=== PATIENT | female | born 2000 | race American Indian/Alaskan Native ===

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

== ENCOUNTER 2022-12-03 13:36 | Emergency (ER) | payer MEDICAID ==
[2022-12-03 14:02] LABS: BASOPHILS PERCENT AUTO 0.3 % (0.0-1.0); EOSINOPHILS PERCENT AUTO 1.7 % (1.0-3.0); HEMATOCRIT 31.6 % (37.0-47.0); HEMOGLOBIN 8.8 g/dL (12.0-16.0); LYMPHOCYTES PERCENT AUTO 41.3 % (20.5-50.1); MEAN CORPUSCULAR HEMOGLOBIN 17.4 pg (27.0-34.0); MEAN CORPUSCULAR HGB CONC 27.8 g/dL (33.0-35.0); MEAN CORPUSCULAR VOLUME 62.3 fL (80-100); MONOCYTES PERCENT AUTO 6.5 % (2-8); NEUTROPHILS PERCENT AUTO 50.2 % (42.2-75.2); PLATELET COUNT,PLT 476 10^3/uL (150-450); RED BLOOD CELL COUNT 5.07 10^6/uL (4.2-5.4); WHITE BLOOD CELL COUNT,WBC 7.3 10^3/uL (5.0-10.0)
[2022-12-03 14:13] LABS: A/G RATIO 0.9; ALANINE AMINOTRANSFERASE,ALT 32 U/L (14-59); ALBUMIN 3.6 g/dL (3.4-5.0); ALKALINE PHOSPHATASE 63 U/L (46-116); AMYLASE 47 U/L (25-115); ASPARTATE AMNIOTRANSFERASE,AST 11 U/L (15-37); BILIRUBIN TOTAL 0.6 mg/dL (0.2-1.0); BLOOD UREA NITROGEN,BUN 5 mg/dL (7-18); CALCIUM 8.4 mg/dL (8.5-10.1); CARBON DIOXIDE,CO2 25 mmol/L (21-32); CHLORIDE,CL 106 mmol/L (98-107); CREATININE 0.71 mg/dL (0.55-1.02); EST CRCL DRUG DOSING (CG) 93.79 mL/min; GLUCOSE RANDOM 92 mg/dL (70-99); LIPASE 96 U/L (73-393); PROTEIN TOTAL,TP 7.8 g/dL (6.4-8.2); SODIUM,NA 141 mmol/L (136-145)
[2022-12-03] MEDS ORDERED: Sodium Chloride 0.9% 1,000 ML IV ONE (14:13)
[2022-12-03 14:16] LABS: C-REACTIVE PROTEIN < 0.2 mg/dL (0.0-0.9); ESTIMATED GFR 123 mL/min (>=60); ETHANOL BLOOD MEDICAL < 3 mg/dL (0)
[2022-12-03 14:42] LABS: PERCENT FE SATURATION 4.9 % (20.0-50.0)
[2022-12-03 14:51] LABS: APPEARANCE,URINE SLIGHTLY CLOUDY (CLEAR); BILIRUBIN,URINE NEGATIVE (NEGATIVE); COLOR,URINE YELLOW (YELLOW); GLUCOSE,URINE NEGATIVE (NEGATIVE); KETONES,URINE NEGATIVE (NEGATIVE); LEUKOCYTE ESTERASE,URINE SMALL (NEGATIVE); NITRITE,URINE NEGATIVE (NEGATIVE); OCCULT BLOOD,URINE MODERATE (NEGATIVE); PH,URINE 6.5 (5.0-9.0); PROTEIN,URINE TRACE (NEGATIVE); UROBILINOGEN,URINE 0.2 mg/dL (0.2-1.0)
[2022-12-03 14:54] LABS: AMPHETAMINES,URINE NEGATIVE (NEGATIVE); BARBITURATES,URINE NEGATIVE (NEGATIVE); BENZODIAZEPINE,URINE NEGATIVE (NEGATIVE); MDMA (ECSTASY), URINE NEGATIVE (NEGATIVE); METHADONE,URINE NEGATIVE (NEGATIVE); METHAMPHETAMINES,URINE NEGATIVE (NEGATIVE); OPIATES,URINE NEGATIVE (NEGATIVE); OXYCODONE,URINE NEGATIVE (NEGATIVE); PHENCYCLIDINE,URINE NEGATIVE (NEGATIVE); TCA,URINE NEGATIVE (NEGATIVE)
[2022-12-03] MEDS ORDERED: cefTRIAXone 1 GM Vial IVPUSH ONE (14:56)
[2022-12-03 15:01] LABS: BACTERIA,URINE FEW /HPF (0-FEW/HPF); EPITHELIAL CELLS,URINE FEW /HPF (NOT SEEN); MUCUS,URINE FEW /LPF (NOT SEEN); RBC,URINE 0-5 /HPF (0-5)
[2022-12-03 15:41] VITALS: BP 124/84; PULSE 85
== END 2022-12-03 15:34 | disposition home or self-care (01) ==
LOC: DL.ED 13:36
DX: D50.9 Iron deficiency anemia, unspecified (principal); N30.00 Acute cystitis without hematuria; F17.200 Nicotine dependence, unspecified, uncomplicated
CPT/HCPCS: 36415; 80053; 80305; 80307; 81001; 81025; 82150; 82272; 83540; 83550; 83605; 83690; 83735; 85025; 86140; 96361; 96374; 99284; J0696; J7030

== ENCOUNTER 2023-02-06 06:29 | Emergency (ER) | payer MEDICAID ==
[2023-02-06] MEDS ORDERED: Sodium Chloride 0.9% 10 ML Syringe FLUSH PRN (07:06)
[2023-02-06 07:09] VITALS: BP 130/85; PULSE 140
[2023-02-06] MEDS ORDERED: Thiamine 100 MG in Sodium Chloride 0.9% 100 ML IV ONE (07:13)
[2023-02-06] MEDS ORDERED: Sodium Chloride 0.9% 1,000 ML IV ONE ×2 (07:13→07:44)
[2023-02-06 07:22] LABS: BASOPHILS PERCENT AUTO 0.4 % (0.0-1.0); EOSINOPHILS PERCENT AUTO 1.1 % (1.0-3.0); HEMATOCRIT 32.2 % (37.0-47.0); HEMOGLOBIN 9.5 g/dL (12.0-16.0); LYMPHOCYTES PERCENT AUTO 26.3 % (20.5-50.1); MEAN CORPUSCULAR HEMOGLOBIN 19.8 pg (27.0-34.0); MEAN CORPUSCULAR HGB CONC 29.5 g/dL (33.0-35.0); MEAN CORPUSCULAR VOLUME 67.2 fL (80-100); MONOCYTES PERCENT AUTO 7.5 % (2-8); NEUTROPHILS PERCENT AUTO 64.7 % (42.2-75.2); PLATELET COUNT,PLT 392 10^3/uL (150-450); RED BLOOD CELL COUNT 4.79 10^6/uL (4.2-5.4); WHITE BLOOD CELL COUNT,WBC 8.6 10^3/uL (5.0-10.0)
[2023-02-06 07:45] LABS: LACTIC ACID 4.5 mmol/L (0.4-2.0)
[2023-02-06 07:49] LABS: A/G RATIO 0.8; ALBUMIN 3.4 g/dL (3.4-5.0); ANION GAP 20.1 mEq/L (7-13); BILIRUBIN TOTAL 0.3 mg/dL (0.2-1.0); BUN/CREATININE RATIO 8.6 (No establ ref range); CALCIUM 8.5 mg/dL (8.5-10.1); CREATININE 0.7 mg/dL (0.55-1.02); EST CRCL DRUG DOSING (CG) 95.13 mL/min; MAGNESIUM 1.9 mg/dL (1.8-2.4); POTASSIUM,K 3.1 mmol/L (3.5-5.1); PROTEIN TOTAL,TP 7.7 g/dL (6.4-8.2); TSH ULTRASENSITIVE 1.5 uIU/mL (0.36-3.74)
[2023-02-06 07:51] LABS: PROTHROMBIN TIME 10.2 SEC (9.0-12.0); PTT,PARTIAL THROMBOPLSTIN TIME 20.7 SEC (22.0-34.0)
== END 2023-02-06 10:17 | disposition home or self-care (01) ==
LOC: DL.ED 06:29
DX: F10.929 Alcohol use, unspecified with intoxication, unspecified (principal); R45.851 Suicidal ideations; F17.210 Nicotine dependence, cigarettes, uncomplicated
CPT/HCPCS: 36415; 80053; 80143; 80179; 80307; 83540; 83605; 83735; 84443; 85025; 85610; 85730; 93005; 93010; 96365; 99284; 99285-25; J3411; J3490; J7030

== ENCOUNTER 2023-03-23 22:23 | Emergency (ER) | payer MEDICAID ==
[2023-03-23] MEDS ORDERED: Sodium Chloride 0.9% 1,000 ML IV ONE ×2 (22:55→23:23)
[2023-03-23] MEDS: Ondansetron 4 MG/2 ML SDV ONE (22:59)
[2023-03-23] MEDS ORDERED: Ondansetron 4 MG/2 ML SDV IVPUSH ONE (23:01)
[2023-03-23 23:09] LABS: HEMATOCRIT 37.1 % (37.0-47.0); HEMOGLOBIN 11.1 g/dL (12.0-16.0); MEAN CORPUSCULAR HEMOGLOBIN 20.2 pg (27.0-34.0); MEAN CORPUSCULAR HGB CONC 29.9 g/dL (33.0-35.0); MEAN CORPUSCULAR VOLUME 67.6 fL (80-100); PLATELET COUNT,PLT 489 10^3/uL (150-450); RED BLOOD CELL COUNT 5.49 10^6/uL (4.2-5.4); WHITE BLOOD CELL COUNT,WBC 11.9 10^3/uL (5.0-10.0)
[2023-03-23 23:15] VITALS: BP 136/101; PULSE 103
[2023-03-23 23:18] LABS: BASOPHILS PERCENT AUTO 0.4 % (0.0-1.0); EOSINOPHILS PERCENT AUTO 0.9 % (1.0-3.0); LYMPHOCYTES PERCENT AUTO 40.1 % (20.5-50.1); MONOCYTES PERCENT AUTO 6.1 % (2-8); NEUTROPHILS PERCENT AUTO 52.5 % (42.2-75.2)
[2023-03-23 23:20] LABS: LACTIC ACID 3.9 mmol/L (0.4-2.0)
[2023-03-23 23:23] LABS: A/G RATIO 0.8; ALANINE AMINOTRANSFERASE,ALT 25 U/L (14-59); ALBUMIN 3.9 g/dL (3.4-5.0); ALKALINE PHOSPHATASE 82 U/L (46-116); ANION GAP 17.8 mEq/L (7-13); ASPARTATE AMNIOTRANSFERASE,AST 14 U/L (15-37); BILIRUBIN TOTAL 0.2 mg/dL (0.2-1.0); BLOOD UREA NITROGEN,BUN 6 mg/dL (7-18); BUN/CREATININE RATIO 8.1 (No establ ref range); CALCIUM 8.7 mg/dL (8.5-10.1); CARBON DIOXIDE,CO2 21 mmol/L (21-32); CHLORIDE,CL 103 mmol/L (98-107); CREATININE 0.74 mg/dL (0.55-1.02); EST CRCL DRUG DOSING (CG) 97.81 mL/min; ETHANOL BLOOD MEDICAL 98 mg/dL (0); GLUCOSE RANDOM 109 mg/dL (70-99); LIPASE 43 U/L (16-77); POTASSIUM,K 2.8 mmol/L (3.5-5.1); SODIUM,NA 139 mmol/L (136-145)
[2023-03-23 23:29] LABS: ACETAMINOPHEN 0 ug/mL (10-30 (Therapeutic)); ESTIMATED GFR 117 mL/min (>=60)
[2023-03-23 23:38] LABS: HCG QUALITATIVE,SERUM NEGATIVE (NEGATIVE)
[2023-03-23 23:43] LABS: PERCENT FE SATURATION 94.9 % (20.0-50.0)
[2023-03-23 23:52] LABS: PROTHROMBIN TIME 9.8 SEC (9.0-12.0); PTT,PARTIAL THROMBOPLSTIN TIME 22.2 SEC (22.0-34.0)
[2023-03-24 00:04] LABS: BAND PERCENT MAN 4 %; LYMPHOCYTES PERCENT MAN 44 % (20-50); MONOCYTES PERCENT MAN 2 % (2-8); SEG NEUTROPHILS PERCENT MAN 50 % (42-75)
[2023-03-24] MEDS ORDERED: Potassium Chloride 20 MEQ in Premix Bag 1 BAG IV ONE (00:06)
[2023-03-24] MEDS: Ondansetron 4 MG/2 ML SDV ONE (00:13)
[2023-03-24] MEDS ORDERED: Sodium Chloride 0.9% 1,000 ML IV ONE (00:19)
[2023-03-24 00:30] LABS: AMPHETAMINES,URINE NEGATIVE (NEGATIVE); BARBITURATES,URINE NEGATIVE (NEGATIVE); BENZODIAZEPINE,URINE NEGATIVE (NEGATIVE); MDMA (ECSTASY), URINE NEGATIVE (NEGATIVE); METHADONE,URINE NEGATIVE (NEGATIVE); METHAMPHETAMINES,URINE NEGATIVE (NEGATIVE); OPIATES,URINE NEGATIVE (NEGATIVE); OXYCODONE,URINE NEGATIVE (NEGATIVE); PHENCYCLIDINE,URINE NEGATIVE (NEGATIVE); TCA,URINE NEGATIVE (NEGATIVE)
[2023-03-24 00:37] LABS: APPEARANCE,URINE CLEAR (CLEAR); BILIRUBIN,URINE NEGATIVE (NEGATIVE); COLOR,URINE YELLOW (YELLOW); GLUCOSE,URINE NEGATIVE (NEGATIVE); KETONES,URINE NEGATIVE (NEGATIVE); LEUKOCYTE ESTERASE,URINE NEGATIVE (NEGATIVE); NITRITE,URINE NEGATIVE (NEGATIVE); OCCULT BLOOD,URINE NEGATIVE (NEGATIVE); PROTEIN,URINE NEGATIVE (NEGATIVE); UROBILINOGEN,URINE 0.2 mg/dL (0.2-1.0)
[2023-03-24 01:29] LABS: PERCENT FE SATURATION 94.3 % (20.0-50.0)
== END 2023-03-24 01:47 ==
LOC: DL.ED 22:23
DX: T45.4X4A Poisoning by iron and its compounds, undetermined, initial encounter (principal); F10.120 Alcohol abuse with intoxication, uncomplicated; E87.6 Hypokalemia
CPT/HCPCS: 36415; 74018; 80053; 80143; 80179; 80305-QW; 80307; 81003; 82140; 83540; 83550; 83605; 83690; 83735; 84703; 85025; 85610; 85730; 86850; 86900; 86901; 93005; 93010; 96361; 96365; 96366; 96375; 99285; 99285-25; J2405; J3480; J7030

== ENCOUNTER 2023-04-27 04:47 | Emergency (ER) | payer MEDICAID ==
[2023-04-27] MEDS ORDERED: Sodium Chloride 0.9% 10 ML Syringe FLUSH PRN (04:51)
[2023-04-27] MEDS ORDERED: Sodium Chloride 0.9% 1,000 ML IV ONE (04:51)
[2023-04-27] MEDS ORDERED: Naloxone 2 MG/2 ML Syringe IVPUSH PRN ×2 (04:56→05:47)
[2023-04-27 05:07] LABS: BASOPHILS PERCENT AUTO 0.4 % (0.0-1.0); EOSINOPHILS PERCENT AUTO 1.7 % (1.0-3.0); HEMATOCRIT 34.1 % (37.0-47.0); LYMPHOCYTES PERCENT AUTO 45.9 % (20.5-50.1); MEAN CORPUSCULAR HEMOGLOBIN 20.2 pg (27.0-34.0); MEAN CORPUSCULAR HGB CONC 29.3 g/dL (33.0-35.0); MEAN CORPUSCULAR VOLUME 68.8 fL (80-100); MONOCYTES PERCENT AUTO 5.1 % (2-8); NEUTROPHILS PERCENT AUTO 46.9 % (42.2-75.2); PLATELET COUNT,PLT 365 10^3/uL (150-450); RED BLOOD CELL COUNT 4.96 10^6/uL (4.2-5.4); WHITE BLOOD CELL COUNT,WBC 7.2 10^3/uL (5.0-10.0)
[2023-04-27 05:22] LABS: A/G RATIO 0.8; ALANINE AMINOTRANSFERASE,ALT 29 U/L (14-59); ALBUMIN 3.4 g/dL (3.4-5.0); ALKALINE PHOSPHATASE 81 U/L (46-116); ANION GAP 13.3 mEq/L (7-13); ASPARTATE AMNIOTRANSFERASE,AST 22 U/L (15-37); BILIRUBIN TOTAL 0.3 mg/dL (0.2-1.0); BLOOD UREA NITROGEN,BUN 6 mg/dL (7-18); BUN/CREATININE RATIO 9.5 (No establ ref range); CALCIUM 7.9 mg/dL (8.5-10.1); CARBON DIOXIDE,CO2 25 mmol/L (21-32); CHLORIDE,CL 106 mmol/L (98-107); CREATININE 0.63 mg/dL (0.55-1.02); ETHANOL BLOOD MEDICAL 164 mg/dL (0); GLUCOSE RANDOM 120 mg/dL (70-99); POTASSIUM,K 3.3 mmol/L (3.5-5.1); PROTEIN TOTAL,TP 7.9 g/dL (6.4-8.2); SODIUM,NA 141 mmol/L (136-145)
[2023-04-27 05:30] LABS: ESTIMATED GFR 128 mL/min (>=60)
[2023-04-27 07:57] LABS: APPEARANCE,URINE CLEAR (CLEAR); BILIRUBIN,URINE NEGATIVE (NEGATIVE); COLOR,URINE YELLOW (YELLOW); GLUCOSE,URINE NEGATIVE (NEGATIVE); KETONES,URINE NEGATIVE (NEGATIVE); LEUKOCYTE ESTERASE,URINE NEGATIVE (NEGATIVE); NITRITE,URINE NEGATIVE (NEGATIVE); OCCULT BLOOD,URINE NEGATIVE (NEGATIVE); PROTEIN,URINE NEGATIVE (NEGATIVE); UROBILINOGEN,URINE 0.2 mg/dL (0.2-1.0)
[2023-04-27 08:02] LABS: AMPHETAMINES,URINE NEGATIVE (NEGATIVE); BARBITURATES,URINE NEGATIVE (NEGATIVE); BENZODIAZEPINE,URINE NEGATIVE (NEGATIVE); MDMA (ECSTASY), URINE NEGATIVE (NEGATIVE); METHADONE,URINE NEGATIVE (NEGATIVE); METHAMPHETAMINES,URINE NEGATIVE (NEGATIVE); OPIATES,URINE NEGATIVE (NEGATIVE); OXYCODONE,URINE NEGATIVE (NEGATIVE); PHENCYCLIDINE,URINE NEGATIVE (NEGATIVE); TCA,URINE NEGATIVE (NEGATIVE)
[2023-04-27 10:12] VITALS: BP 127/79; PULSE 69
== END 2023-04-27 10:12 | disposition home or self-care (01) ==
LOC: DL.ED 04:47
DX: F10.929 Alcohol use, unspecified with intoxication, unspecified (principal)
CPT/HCPCS: 36415; 70450; 80053; 80305; 80307; 81003; 82140; 85025; 96361; 96374; 96376; 99284; 99285; J2310; J7030; J3490

== ENCOUNTER 2024-06-01 04:31 | Inpatient (IN) | payer MEDICAID ==
[2024-06-01] MEDS ORDERED: Sodium Chloride 0.9% 10 ML Syringe FLUSH PRN (05:29)
[2024-06-01] MEDS ORDERED: Carboprost Tromethamine 250 MCG/1 ML Amp IM PRN (05:29)
[2024-06-01] MEDS ORDERED: Misoprostol 100 MCG Tab RECTAL PRN ×2 (05:29→05:40)
[2024-06-01] MEDS ORDERED: Methylergonovine 0.2 MG/1 ML Amp IM PRN (05:29)
[2024-06-01] MEDS ORDERED: Tranexamic Acid 1,000 MG in Sodium Chloride 0.9% 100 ML IV PRN (05:29)
[2024-06-01] MEDS ORDERED: Oxytocin/Normal Saline 30 UNIT/500 ML BAG IV SCH (05:30)
[2024-06-01] MEDS: Lactated Ringers 1,000 ML IV SCH (06:00)
[2024-06-01] MEDS: Oxytocin/Normal Saline 30 UNIT/500 ML BAG IV SCH (06:00)
[2024-06-01 06:28] LABS: HEMATOCRIT 36.4 % (37.0-47.0); HEMOGLOBIN 10.4 g/dL (12.0-16.0); MEAN CORPUSCULAR HGB CONC 28.6 g/dL (33.0-35.0); MEAN CORPUSCULAR VOLUME 73.4 fL (80-100); RED BLOOD CELL COUNT 4.96 10^6/uL (4.2-5.4); WHITE BLOOD CELL COUNT,WBC 11.3 10^3/uL (5.0-10.0)
[2024-06-01 06:29] LABS: APPEARANCE,URINE CLEAR (CLEAR); BILIRUBIN,URINE NEGATIVE (NEGATIVE); COLOR,URINE YELLOW (YELLOW); GLUCOSE,URINE NEGATIVE (NEGATIVE); KETONES,URINE NEGATIVE (NEGATIVE); LEUKOCYTE ESTERASE,URINE NEGATIVE (NEGATIVE); NITRITE,URINE NEGATIVE (NEGATIVE); OCCULT BLOOD,URINE TRACE-INTACT (NEGATIVE); PH,URINE 6.5 (5.0-9.0); PROTEIN,URINE NEGATIVE (NEGATIVE); UROBILINOGEN,URINE 0.2 mg/dL (0.2-1.0)
[2024-06-01 06:43] LABS: CREATININE,URINE RAND 70.3 mg/dL (No establ ref range); PROTEIN,URINE RANDOM 25.8 mg/dL (0.0-11.9)
[2024-06-01 06:47] LABS: CREATININE 0.5 mg/dL (0.55-1.02); EST CRCL DRUG DOSING (CG) 130.92 mL/min; URIC ACID 4.2 mg/dL (2.6-6.0)
[2024-06-01] MEDS: fentaNYL 100 MCG/2 ML SDV IVPUSH PRN (16:29)
[2024-06-01] MEDS ORDERED: Bupivacaine 0.25% 10 ML SDV ONE (16:42)
[2024-06-01] MEDS ORDERED: fentaNYL 100 MCG/2 ML SDV ONE (16:42)
[2024-06-01] MEDS: Ondansetron 4 MG/2 ML SDV IVPUSH PRN (17:01)
[2024-06-01] MEDS ORDERED: ePHEDrine 50 MG/ML SDV IVPUSH PRN (17:12)
[2024-06-01] MEDS ORDERED: Phenylephrine HCl In 0.9% NaCl 1 MG/10 ML Syringe IVPUSH PRN (17:12)
[2024-06-01] MEDS ORDERED: Ropivacaine 200 MG in Premix Bag 1 BAG EPIDUR SCH (17:15)
[2024-06-02] MEDS ORDERED: Bupivacaine 0.25% 10 ML SDV ONE (04:31)
[2024-06-02] MEDS ORDERED: fentaNYL 100 MCG/2 ML SDV ONE ×2 (04:31→06:53)
[2024-06-02] MEDS ORDERED: Acetaminophen/oxyCODONE 325-5 MG Tab PO PRN (14:14)
[2024-06-02] MEDS ORDERED: diphenhydrAMINE 50 MG/ML SDV IVPUSH PRN (14:14)
[2024-06-02] MEDS ORDERED: Naloxone 2 MG/2 ML Syringe IVPUSH PRN (14:14)
[2024-06-02] MEDS ORDERED: Acetaminophen 325 MG Tab PO PRN (14:14)
[2024-06-02] MEDS ORDERED: ePHEDrine 50 MG/ML SDV IVPUSH PRN (14:14)
[2024-06-02] MEDS ORDERED: Hydrocortisone 2.5% Crm 30 GM Tube TOP PRN (14:14)
[2024-06-02] MEDS ORDERED: Witch Hazel Medicated Pads 100/Jar TOP PRN (14:14)
[2024-06-02] MEDS ORDERED: Benzocaine/Menthol 20%-0.5% Spray 78 GM Cannister TOP PRN (14:14)
[2024-06-02] MEDS ORDERED: Lactated Ringers 1,000 ML IV SCH (14:15)
[2024-06-02] MEDS ORDERED: Lidocaine 2% with EPINEPHrine 1:200,000 20 ML SDV ONE (14:24)
[2024-06-02] MEDS ORDERED: Dexamethasone 4 MG/ML SDV ONE (14:35)
[2024-06-02] MEDS ORDERED: Ondansetron 4 MG/2 ML SDV ONE (14:35)
[2024-06-02] MEDS ORDERED: Tranexamic Acid 1,000 MG/10 ML Vial ONE (14:35)
[2024-06-02] MEDS ORDERED: Oxytocin 10 Units/1 ML SDV ONE (14:35)
[2024-06-02] MEDS ORDERED: ceFAZolin 2 GM Vial ONE (14:36)
[2024-06-02] MEDS ORDERED: ceFAZolin 1 GM Vial ONE (14:36)
[2024-06-02] MEDS ORDERED: Succinylcholine 200 MG/10 ML MDV ONE (14:55)
[2024-06-02] MEDS: Oxytocin/Normal Saline 30 UNIT/500 ML BAG IV SCH (15:26)
[2024-06-02] MEDS: Lactated Ringers 1,000 ML IV ONE (18:39)
[2024-06-02] MEDS: ceFAZolin 1 GM Vial IVPUSH ONE (18:39)
[2024-06-02] MEDS: Simethicone 80 MG Tab.Chew PO SCH (18:40)
[2024-06-02] MEDS: Lidocaine 1% 30 ML SDV INJECT ONE (18:40)
[2024-06-02] MEDS: Ketorolac 30 MG/ML SDV IVPUSH SCH (21:31)
[2024-06-02] MEDS: Promethazine 25 MG/ML SDV IM PRN (23:43)
[2024-06-03 06:29] LABS: HEMATOCRIT 29.3 % (37.0-47.0); HEMOGLOBIN 8.3 g/dL (12.0-16.0); MEAN CORPUSCULAR HEMOGLOBIN 21.2 pg (27.0-34.0); MEAN CORPUSCULAR HGB CONC 28.3 g/dL (33.0-35.0); MEAN CORPUSCULAR VOLUME 74.9 fL (80-100); RED BLOOD CELL COUNT 3.91 10^6/uL (4.2-5.4); WHITE BLOOD CELL COUNT,WBC 21.5 10^3/uL (5.0-10.0)
[2024-06-03] MEDS: Docusate Sodium 100 MG Cap PO PRN (09:28)
[2024-06-03] MEDS: Prenatal Multivitamin with Calcium/Folic Acid/Iron Tab PO SCH (09:28)
[2024-06-03] MEDS: Ibuprofen 800 MG Tab PO PRN (17:33)
[2024-06-03] MEDS: Acetaminophen/oxyCODONE 325-5 MG Tab PO PRN (19:50)
[2024-06-04] MEDS ORDERED: FLU (Flulaval Triv) 24-25(6MOS UP)/PF 45 MCG/0.5 ML Syringe IM ONE (09:00)
[2024-06-04 09:41] VITALS: BP 146/88; PULSE 104
[2024-06-04] MEDS ORDERED: ceFAZolin 1 GM in Sodium Chloride 0.9% 10 ML IV ONE (09:54)
[2024-06-04] MEDS ORDERED: Morphine PF 10 MG/10 ML SDV EPIDUR ONE (09:54)
[2024-06-04] MEDS ORDERED: Tranexamic Acid 1,000 MG/10 ML Vial IV ONE (09:54)
[2024-06-04] MEDS ORDERED: Ropivacaine 100 ML EPIDUR ONE ×2 (09:54)
[2024-06-04] MEDS ORDERED: Dexamethasone 4 MG/ML SDV IV ONE (09:54)
[2024-06-04] MEDS ORDERED: Oxytocin/Normal Saline 30 UNIT/500 ML BAG IV ONE (09:54)
[2024-06-04] MEDS ORDERED: Ketorolac 30 MG/ML SDV IVPUSH ONE (09:54)
[2024-06-04] MEDS ORDERED: fentaNYL 100 MCG/2 ML SDV EPIDUR ONE (09:54)
[2024-06-04] MEDS ORDERED: Ondansetron 4 MG/2 ML SDV IV ONE (09:54)
[2024-06-04] MEDS ORDERED: Lidocaine 2% with EPINEPHrine 1:200,000 20 ML SDV NERVRT ONE (09:54)
[2024-06-04] MEDS ORDERED: Bupivacaine 0.25% 10 ML SDV NERVRT ONE (09:54)
[2024-06-04] MEDS: FLU (Fluarix Triv) TS24-25(6MOS UP)/PF 45 MCG/0.5 ML Syringe IM ONE (10:38)
== END 2024-06-04 09:55 | disposition home or self-care (01) | DRG 788 ==
LOC: DL.OBCHECK 04:31 → DL.OB 05:24 → OBSVTOIN 06-02 15:09
PROVIDERS: ADMIT Family Medicine; ATTEND Family Medicine
PROC: 10D00Z1 Extraction of Products of Conception, Low, Open Approach (ICD-10-PCS; principal; 2024-06-02 14:50)
DX: O42.02 Full-term premature rupture of membranes, onset of labor within 24 hours of rupture (principal); O14.94 Unspecified pre-eclampsia, complicating childbirth; O62.2 Other uterine inertia; O77.9 Labor and delivery complicated by fetal stress, unspecified; O34.83 Maternal care for other abnormalities of pelvic organs, third trimester; N83.209 Unspecified ovarian cyst, unspecified side; O77.0 Labor and delivery complicated by meconium in amniotic fluid; Z98.891 History of uterine scar from previous surgery; Z37.0 Single live birth; Z3A.40 40 weeks gestation of pregnancy
CPT/HCPCS: 36415; 51701; 51702; 81003; 82565; 82570; 83615; 84112; 84156; 84450; 84460; 84520; 84550; 85027; 86850; 86900; 86901; 87210; 94010; A9270-GY; C1729; G0008; J0330; J0665; J0690; J1100; J1885; J2274; J2405; J2550; J2590; J2795; J3010; J3490; J7120